=== PATIENT | female | born 1970 | race Asian ===

== ENCOUNTER 2022-07-04 13:40 | Emergency (ER) | payer OTHER, SELFPAY ==
--- NOTE | ~2022-07-04 | CT_ITS ---
EXAMINATION: CT brain wo con DATE: 07/04/2022 18:18 INDICATION: headache, syncope . TECHNIQUE: Computed tomography (CT) of the head was performed without intravenous contrast. The mA wa s adjusted according to patient size. Iterative reconstruction technique was employed. The dose-lengt h product was 605.33 mGy-cm. COMPARISON: None. FINDINGS: No acute intracranial hemorrhage or extra-axial fluid collection. No hydrocephalus, mass, or herniation. No acute ischemic infarct. Unremarkable dural venous sinus attenuation. No acute osseous abnormality. The aerated spaces are clear. IMPRESSION: No acute intracranial process. Reviewed, dictated and finalized at location K.
--- NOTE | ~2022-07-04 | XR_ITS ---
EXAMINATION: XR chest 2V Exam Date/Time: 07/04/2022 14:50 CDT HISTORY: lt sided cp, syncopal episode Comparison: None. RESULT: Lines, tubes, and devices: Right chest port terminates in the right atrium.. Lungs and pleura: Left basilar airspace disease with moderate costophrenic angle blunting. Cardiomediastinal silhouette: Stable. Other: No acute osseous or upper abdominal finding. IMPRESSION: Moderate left pleural effusion with left basilar atelectasis/consolidation. Reviewed, dictated and finalized at location K.
--- NOTE | ~2022-07-04 | CT_ITS ---
EXAMINATION: CTA chest PE protocol DATE: 07/04/2022 18:23 INDICATION: chest pain TECHNIQUE: Computed tomography angiography (CTA) of the chest was performed with 100 mL Omnipaque-350 intravenous contrast timed to evaluate the pulmonary arteries. Coronal maximum intensity projection 3D-reconstructions were created by the technologist. The dose-length product (DLP) was 540.86 mGy-cm. Automated exposure control and iterative reconstruction technique were employed. COMPARISON: X-ray chest 07/04/2022. FINDINGS: Lung parenchyma and airways: Uniformly enhancing left lower lobe consolidation and dependent groundgl ass opacity. Lungs otherwise clear. Pleura: Moderate volume simple left pleural fluid collection. Thoracic inlet, axillae and chest wall: Bilateral breast implants with left intracapsular rupture. Ri ght implanted chest port terminates in the right atrium. Thoracic aorta: Normal. Mediastinum: Normal. Heart and pericardium: Normal. Coronary artery calcifications: Absent. Upper abdomen: Multiple liver lesions concerning for metastatic disease.. Bones: No acute osseous finding. Pulmonary arteries: Study quality: Adequate, with the exception of motion and beam hardening artifact that obscure subsegmental branches of the left lower lobe. No pulmonary emboli detected. IMPRESSION: No CT evidence of central or segmental acute pulmonary embolus. Moderate left pleural effusion, with adjacent left lower lobe atelectasis. Left intracapsular implant rupture. Hepatic metastases. Reviewed, dictated and finalized at location K. IMPRESSION: No CT evidence of central or segmental acute pulmonary embolus. Moderate left p leural effusion, with adjacent left lower lobe atelectasis. Left intracapsular implant rupture. Hepatic metastases.
--- NOTE | 2022-07-04 13:44 | ECG_ITS ---
Measurements Intervals [place] Rate: 86 P: 31 DE: 132 QRS: 89 QRSD: 89 T: 21 QT: 354 QTc: 424 Interpretive Statements SINUS RHYTHM NORMAL ECG NO PREVIOUS ECG AVAILABLE FOR COMPARISON Electronically Signed On 07-04-2022 14:14:30 CDT by Alhaji Ortiz D.O.
[2022-07-04 14:25] VITALS: BP 119/68; PULSE 81; RESP 16; TEMP 36.8; O2SAT 100
[2022-07-04 14:30] LABS: Basophils Percent Auto 0.6 % (0.2-1.2); Eosinophils Percent Auto 1.2 % (0-4.4); Hematocrit 35.7 % (37.0-47.0); Hemoglobin 11.8 g/dL (12.0-15.0); Immature Granulocyte Absolute 0.01 K/mm3 (0.00-0.031); Immature Granulocyte Percent A 0.3 % (0-0.5); Lymphocytes Absolute Auto 0.67 K/mm3 (0.9-3.2); Lymphocytes Percent Auto 19.6 % (18.3-44.2); Mean Corpuscular HGB Conc 33.1 g/dl (32-36); Mean Corpuscular Hemoglobin 26.6 pg (26-34); Mean Corpuscular Volume 80.6 fl (80-100); Mean Platelet Volume 10.4 fl (7.4-10.4); Monocytes Absolute Auto 0.1 K/mm3 (0.1-0.6); Monocytes Percent Auto 1.5 % (2.6-8.5); Neutrophils Absolute Auto 2.6 K/mm3 (1.3-6.7); Neutrophils Percent Auto 76.8 % (45.5-73.1); Platelet Count Result 268 k/mm3 (150-375); Red Blood Count 4.43 M/mm3 (4.2-5.4); Red Cell Distribution Width 12.9 % (11.5-14.5); White Blood Count 3.4 K/mm3 (4.5-10.0)
[2022-07-04 14:42] LABS: INR 0.9; Prothrombin Time 12.8 Seconds (11.1-14.7)
[2022-07-04 14:43] LABS: Alanine Aminotransferase 48 U/L (6-35); Albumin Level 4.1 g/dL (3.5-5.1); Alkaline Phosphatase 90 U/L (38-126); Anion Gap 6 mmol/L (8-16); Aspartate Amino Transferase 54 U/L (14-36); Bilirubin,Total 0.5 mg/dL (0.2-1.3); Blood Urea Nitrogen 15 mg/dL (7-17); Calcium 8.7 mg/dL (8.4-10.2); Carbon Dioxide 30 mmol/L (22-30); Chloride 102 mmol/L (98-107); Estimated CRCL calculation 57 ml/min; Estimated Glomerular Filt Rate > 60; Glucose 107 mg/dL (65-110); Lipase 139 U/L (23-300); Partial Thromboplastin Time 24.6 SECONDS (22.3-36.8); Potassium 3.5 mmol/L (3.4-5.0); Sodium 138 mmol/L (137-145)
[2022-07-04 14:54] LABS: Troponin I < 0.012 ng/mL (0.000-0.034)
[2022-07-04 17:30] LABS: Troponin I < 0.012 ng/mL (0.000-0.034)
--- NOTE | 2022-07-04 18:09 | ED.GENADULT ---
HPI - General Adult General Chief complaint: Chest Pain Stated complaint: cancer patient, not feeling well, CP Time Seen by Provider: 07/04/22 17:01 Source: patient, RN notes reviewed and old records reviewed Mode of arrival: ambulatory Limitations: no limitations History of Present Illness HPI narrative: This is a 51 year old female with history of stage IV breast cancer who presents for evaluation of syncopal episode. Patient has left breast mass that has been present since February, and she has been diagnosed with stage 4 breast cancer. She has noticed increased warm and pain at location of left breast mass for 3 days. She reports today she was standing up when she got lightheaded and fell onto her bed. She also reports possibly having another episod briefly after that and she was told by family she was unconsious for 15 minutes. She also reports diffuse headache since passing out . She reports nausea but no vomiting. She reports having fluid removed from her left leg at [facility] in February but this feels different. She denies fever. She has been taking diclofenac for her pain. Her oncologist is located in [place]. SHe is scheduled for CT soon for evaluation of her cancer. Related Data Home Medications Medication Instructions Recorded Confirmed No Home Medications 02/26/19 02/26/19 Allergies Allergy/AdvReac Type Severity Reaction Status Date / Time No Known Allergies Allergy Verified 02/26/19 10:00 Review of Systems Constitutional: Constitutional: Denies weakness Cardiovascular: Cardiovascular: Reports chest pain, Denies syncope, Denies rapid heart rate, Denies irregular heart rhythm, Denies leg edema and Denies dyspnea Respiratory: Respiratory: Denies chest congestion, Denies hemoptysis, Denies excessive phlegm production and Denies dyspnea Gastrointestinal: Gastrointestinal: Denies abdominal pain, Denies hematochezia, Denies diarrhea, Reports nausea and Denies vomiting Genitourinary: Genitourinary: Denies hematuria and Denies dysuria Musculoskeletal: Musculoskeletal: Denies joint swelling, Denies loss of height and Denies muscle weakness Neurologic: Reports dizziness, Reports syncope, Reports headache(s), Denies focal weakness and Denies weakness PMFSH Past Medical History Medical History (Updated 07/05/22 @ 00:01 by Nereida Polanco) Breast cancer, left Breast cancer, right Metastatic disease Surgical History Surgical History H/O right mastectomy Social History Social History (Updated 02/26/19 @ 10:38 by Korin Villalobos, [employer]) Smoking status: Never smoker Alcohol intake: never Substance use: never Living arrangements: with family Gender identity (if verbalized by the patient): Female Exam Const: General: no acute distress and alert Nutritional Appearance: well nourished Orientation/consciousness: patient oriented x3 HENMT: Head: normal to inspection Mouth: Yes Normal oral and palatal mucosa present, Yes lip normal and Yes moist mucous membranes Throat: posterior oropharynx normal and uvula midline Eyes: Pupils: Equal, round and reactive pupils present EOM: EOMs intact bilaterally Neck: Neck: normal visual inspection Chest: Breast/axilla palpation: abnormal palpation of the breast (large left breast mass medial, no erythema, ) Resp: Effort & Inspection: normal respiratory effort Auscultation: clear to auscultation bilaterally Cardio: Rate: regular rate Rhythm: regular rhythm Heart sounds: no murmurs GI: GI Palp: Yes Soft to palpation, No Tenderness to palpation present (GI), No Guarding due to palpation present (GI) and No Rigid due to palpation Auscultation: normal bowel sounds Skin: General skin exam: normal color Rashes: no rashes Other: right upper chest port a cath in place, with suture in place above charlene cath Neuro: General: patient oriented x3, moves all extremities
[2022-07-04 18:57] VITALS: BP 125/81; PULSE 82
[2022-07-04 18:58] VITALS: BP 125/78; PULSE 91
[2022-07-04 18:59] VITALS: BP 132/94; PULSE 92
[2022-07-04] MEDS: SODIUM CHLORIDE 0.9% IV 1,000 ML 999 ML IV CONT (19:12)
[2022-07-04] MEDS: HEPARIN SODIUM LOCK FLUSH 500 UNITS/5 ML VIAL (20:23)
[2022-07-04 20:25] VITALS: BP 102/88; RESP 20; O2SAT 98
== END 2022-07-04 20:25 | disposition home or self-care (01) ==
PROVIDERS: Emergency Medicine; Emergency Provider General Practice; PCP Family Medicine
DX: C78.7 Secondary malignant neoplasm of liver and intrahepatic bile duct (principal); J90 Pleural effusion, not elsewhere classified; T85.49XA Other mechanical complication of breast prosthesis and implant, initial encounter; C50.912 Malignant neoplasm of unspecified site of left female breast; Z85.3 Personal history of malignant neoplasm of breast; Z90.11 Acquired absence of right breast and nipple; Y84.8 Other medical procedures as the cause of abnormal reaction of the patient, or of later complication, without mention of misadventure at the time of the procedure
CPT/HCPCS: 36415; 70450; 71046; 71275; 80053; 83690; 84484; 85025; 85610; 85730; 93005; 96360; 99284; J1642; J7030; Q9967